=== PATIENT | male | born 1980 | race American Indian/Alaskan Native ===

== ENCOUNTER 2022-05-03 10:13 | Emergency (ER) | payer OTHER ==
--- NOTE | 2022-05-03 11:37 | Emergency Department Report ---
ED ENT HPI - General Chief complaint: Pain General Stated complaint: MOUTH PAIN Time Seen by Provider: 05/03/22 10:25 Source: patient Mode of arrival: Ambulatory Limitations: No Limitations - History of Present Illness Initial comments: This is a 41-year-old -[place] male who presents to the emergency room with blisters to mouth x3 days. Painful on the tip of his tongue and lower lip. States blisters get larger as the day has increase. Patient reports history every 3 months. Patient states he was seen by a primary care doctor because he thought it was HSV which labs came back -1-month ago. Patient also reports that he had a dentist last month and prescribed Magic mouthwash for ulcers which does not provide comfort. Patient states he does not know what else to do. MD complaint: other (blisters to mouth) Onset/Timin -: days(s) - Related Data Previous Rx's Medication Instructions Recorded Last Taken Type Chlorhexidine Mouthwash [Peridex] 15 ml MM BID #1 bottle 05/03/22 Unknown Rx Prednisone [predniSONE 10 mg 10 mg PO .TAPER 5 Days #1 tab 05/03/22 Unknown Rx (6-Day Pack, 21 Tabs)] Allergies Allergy/AdvReac Type Severity Reaction Status Date / Time No Known Allergies Allergy Verified 05/03/22 10:29 ED Dental HPI - General Chief complaint: Pain General Stated complaint: MOUTH PAIN Time Seen by Provider: 05/03/22 10:25 Source: patient Mode of arrival: Ambulatory Limitations: No Limitations - Related Data Previous Rx's Medication Instructions Recorded Last Taken Type Chlorhexidine Mouthwash [Peridex] 15 ml MM BID #1 bottle 05/03/22 Unknown Rx Prednisone [predniSONE 10 mg 10 mg PO .TAPER 5 Days #1 tab 05/03/22 Unknown Rx (6-Day Pack, 21 Tabs)] Allergies Allergy/AdvReac Type Severity Reaction Status Date / Time No Known Allergies Allergy Verified 05/03/22 10:29 ED Review of Systems ROS: Stated complaint: MOUTH PAIN Other details as noted in HPI Constitutional: denies: chills, fever ENT: other (blisters to mouth). denies: ear pain, throat pain Respiratory: denies: cough, shortness of breath, wheezing Cardiovascular: denies: chest pain, palpitations Skin: denies: rash, lesions Neurological: denies: headache, weakness, paresthesias Psychiatric: denies: anxiety, depression ED Past Medical Hx - Past Medical History Hx Hypertension: Yes - Surgical History Additional Surgical History: Left shoulder sx - Social History Smoking Status: Current Every Day Smoker - Medications Home Medications: Home Medications Medication Instructions Recorded Confirmed Last Taken Type Chlorhexidine Mouthwash [Peridex] 15 ml MM BID #1 bottle 05/03/22 Unknown Rx Prednisone [predniSONE 10 mg 10 mg PO .TAPER 5 Days #1 tab 05/03/22 Unknown Rx (6-Day Pack, 21 Tabs)] ED Physical Exam - General Limitations: No Limitations General appearance: alert, in no apparent distress - Head Head exam: Present: atraumatic, normocephalic - ENT ENT exam: Present: mucous membranes moist - Expanded ENT Exam Expanded Mouth exam: Present: other (10 mm ulcers x 2, inner lower lip, white, ttp, sensation intact, no swelling, FROM). Absent: drooling, trismus, muffled voice, tongue normal (1 cm ulcer distal tongue, ttp, white, sensation intact, no swelling, no elevation, FROM), tongue elevation Teeth exam: Present: normal inspection Throat exam: Positive: normal inspection - Neck Neck exam: Present: normal inspection - Respiratory Respiratory exam: Present: normal lung sounds bilaterally. Absent: respiratory distress - Cardiovascular Cardiovascular Exam: Present: regular rate, normal rhythm. Absent: systolic murmur, diastolic murmur, rubs, gallop - Neurological Exam Neurological exam: Present: alert, oriented X3 - Psychiatric Psychiatric exam: Present: normal affect, normal mood - Skin Skin exam: Present: warm, dry, intact, normal color. Absent: rash ED Course Vital Signs 05/03/22 05/03/22 10:23 11:50 Temperature 98.2 F 96.3 F L Pulse Rate 108 H 88 Respiratory 14 16 Rate Blood Pressure 156/114 Blood Pressure 133/78 [Right] O2 Sat by Pulse 100 100 Oximetry ED Medical Decision Making - Medical Decision Making Patient presents with ulcers to tongue and lower lip x3 days. Patient is stable and was examined by me. Susceptible of canker sores. Discussed plan with patient. Start prednisone taper and chlorhexidine mouthwash. Referral to ENT. He agreed with ER plan. Discharged home stable. Critical care attestation.: If time is entered above; I have spent that time in minutes in the direct care of this critically ill patient, excluding procedure time. ED Disposition Clinical Impression: Canker sores oral, Pain, dental Disposition: 01 HOME / SELF CARE / HOMELESS Is pt being admited?: No Condition: Stable Instructions: Canker Sores Prescriptions: Chlorhexidine Mouthwash [Peridex] 15 ml MM BID #1 bottle Prednisone [predniSONE 10 mg (6-Day Pack, 21 Tabs)] 10 mg PO .TAPER 5 Days #1 tab Referrals: MOE DIAZ MD [Staff Physician] - 3-5 Days [facility] - 3-5 Days Forms: Work/School Release Form(ED) Time of Disposition: 11:44
[2022-05-03 12:03] VITALS: BP 133/78
== END 2022-05-03 12:03 | disposition home or self-care (01) ==
LOC: ED 10:13
DX: K12.0 Recurrent oral aphthae (principal); K08.89 Other specified disorders of teeth and supporting structures; I10 Essential (primary) hypertension; Z98.890 Other specified postprocedural states; F17.290 Nicotine dependence, other tobacco product, uncomplicated
CPT/HCPCS: 99282